=== PATIENT | male | born 1980 | race Caucasian/White ===

== ENCOUNTER 2024-09-07 03:35 | Emergency (ER) | payer OTHER, SELFPAY ==
[2024-09-07 03:42] VITALS: BP 125/88
[2024-09-07 04:00] VITALS: BP 124/75
[2024-09-07] MEDS: LOW STRENGTH ASPIRIN 324 MG PO (04:04)
[2024-09-07 04:08] VITALS: BMI 22.6
--- NOTE | 2024-09-07 04:18 | ED.GENMED ---
History of Present Illness
General
Chief Complaint: Chest Pain
Source: patient
Exam Limitations: none
Time Seen by Provider: 09/07/24 03:51
Nursing documentation reviewed up to this point in time: agreed with
History of Present Illness
History of Present Illness:
This is a 43-year-old gentleman who has history of ADHD, anxiety, low back pain who complains of left-sided chest pain that woke him from sleep approximately 1 hour prior to arrival associated with nausea without vomiting. He admits to brief
feeling of somewhat hot and then mildly cold but denies diaphoresis, brief cough upon arrival to the ED but prior to this has not had a cough, denies shortness of breath, denies palpitations, denies dizziness or lightheadedness.
Denies history of similar episodes of chest pain although review of records reveals various previous ED visits for chest pain complaints with unremarkable ED evaluations.
He has history of heart murmur initially discovered at age 9 but no history of CAD.
Family history of CAD in his dad who in his 50s of an KS.
Patient's only daily medication is Adderall. He did take a dose of Advil yesterday morning prior to golfing but denies daily nor frequent NSAID use.
He has not taken anything for his chest discomfort tonight.
No definitive aggravating or relieving factors. Pain is not worse with movement, not worse with deep breath. Left sided chest pain occasionally radiates to his left shoulder. He denies weakness or numbness and arm pain, denies back pain or neck
pain.
Past History
Past History
ED Past Medical History: Psychiatric (ADHD, Anxiety) and Other (Panic disorder)
ED Past Surgical History: Orthopedic
Social History
Tobacco: Smoker
Alcohol: Occasional
Personal:
Living: with family
Employment: Employed
Family History
Family History: CAD (Father of an KS in his 50s)
Phy Exam
Physical Exam
Physical Exam:
GENERAL: 43-year-old gentleman appears his stated age, awake and alert, pleasant, appears in no acute distress.
EYE: anicteric
NECK: Supple, nontender, no meningismus, no significant adenopathy.
ENT: oral mucosa is moist. No rhinorrhea.
CARDIAC: Regular rate and rhythm. 2/6 holosystolic murmur left sternal border.
LUNGS: Clear breath sounds bilaterally, no acute respiratory distress, no wheezes/rales/rhonchi. No palpable chest wall tenderness.
ABDOMEN: Soft, nondistended, mild tenderness left upper quadrant with deep palpation only, no r/g, no cvat. normoactive BS.
NEUROLOGICAL: Alert and oriented x3, no focal neuro deficits. Gait is steady.
SKIN: Warm and dry, normal color, skin intact. No rash.
MUSCULOSKELETAL: No C/C/E. peripheral pulses are full and equal b/l. No palpable tenderness.
PSYCH: Normal and appropriate interaction.
Scores
Heart Score for Chest Pain Patients
STEMI patient?: No
History: Slightly or Non-Suspicious
ECG: Normal
Age: </= 45 years
Risk Factors: 1 or 2 Risk Factors
Troponin: </= Normal Limit
Heart Score for Chest Pain Patients: 1
Heart Score Risk: 2.5% MACE over next 6 weeks
Course
Orders/Labs/Results
Orders:
Orders
09/07/24 03:36
Electrocardiogram (*1) Urgent
Reason for Study: Chest Pain
09/07/24 03:37
EKG- Treatment ONCE
09/07/24 04:00
Aspirin Chewable [Low Strength Aspirin] 324 mg PO NOW STA
09/07/24 04:09
Complete Blood Count/With Diff Urgent
Comprehensive Metabolic Panel Urgent
Troponin I Urgent
09/07/24 05:03
Pantoprazole [Protonix IV] 40 mg IV NOW STA
CR Chest - 2 Views Urgent
Comment:
Reason For Exam: ACUTE L CP
09/07/24 05:32
Troponin I Urgent
Abnormal Lab Results
09/07/24
04:09
Absolute Monos (auto) 0.9 H 10^3/uL
(0.1-0.6)
Monocytes % 9.8 H %
(1.7-9.3)
09/07/24 04:09
09/07/24 04:09
Vital Signs
Initial and Last Documented VS:
Initial Vital Signs
Temp Pulse Resp BP Pulse Ox
98.0 F 91 16 125/88 99
09/07/24 03:42 09/07/24 03:42 09/07/24 03:42 09/07/24 03:42 09/07/24 03:42
Last Documented Vital Signs
Temp Pulse Resp BP Pulse Ox
98.0 F 87 15 106/71 96
09/07/24 03:42 09/07/24 05:00 09/07/24 05:00 09/07/24 05:00 09/07/24 05:00
MDM/Problems Addressed
Differential Diagnosis Includes:
Concern for ACS, GERD, pleurisy, musculoskeletal chest pain.
No history of thromboembolism nor risk factors for such.
EKG is reassuring, within normal limits.
Will give a full-strength dose of chewable aspirin.
Labs are pending.
MDM/Problems Addressed:
Acute chest pain
*Radiology
Radiology exam reviewed: preliminary read by ED provider (Chest x-ray is unremarkable, normal heart size, clear lung rivers. Similar and unchanged from previous 2009)
*Pulse Oximetry
Patient hypoxic: no
*EKG
Interpreted by ED Provider?: Yes
Interpretation: normal
Comparison EKG: no changes (Unchanged from previous December 2022)
Rate: normal
Rhythm: sinus
[place]: normal axis
Interval: normal interval
QRS Pattern: normal QRS
Ischemia: no ischemia
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
Rate: normal
Interpretation: normal
Rhythm: sinus
*Critical Care Note
Total Time (30-74mins, 75-104mins- exclusive of procedures): Not Applicable
Update Note
Update Note:
Patient sleeping upon reevaluation.
notes that her complained of return of mild left shoulder ache but is now asleep.
Labs thus far are unremarkable with negative troponin.
Will give an IV dose of Protonix for potential GERD and plan to recheck troponin at 5:30 AM and will check chest x-ray as well.
If these returned unremarkable we will plan for discharge to home.
Due to family history of CAD, father passing away of an KS in his mid 50s, will plan to refer to our chest pain hotline.
ED Attending Note
-
Portions of this chart may have been created with voice recognition software.� Occasional wrong word or��sound alike� substitutions may have occurred due to the inherent limitations of voice recognition software.
Discharge Plan
Departure
Discharge Problem:
Nonspecific chest pain
Instructions: Chest Pain CBC Follow Up
Prescriptions:
No Action
Adderall
1 tab PO DAILY
Patient Comments:
pt does not know mg - supposed to take half in afternoon also but only takes morning dose
Referrals:
Miguel Angel Lam MD [Family Provider] - Call in 1-3 days for appt
Interventions
Interventions:
*Risk Screen - Suicide Last Done: 09/07/24 04:08
*General Assessment Last Done: 09/07/24 03:42
*Neglect/Abuse Screening Last Done: 09/07/24 04:08
ED- Fall Risk Assessment Last Done: 09/07/24 04:21
*ED COVID-19 Vaccine History Last Done: 09/07/24 03:42
ED- Cardiac Assessment Last Done: 09/07/24 04:21
Discharge Date and Time
Print Language: BELARUSIAN
--- NOTE | 2024-09-07 04:22 | EDRN ---
Pt woke around [id number] with L side chest pain. Pt has hx of anxiety and says it feels similar however pt noted it went down his L arm. Pt was lightheaded when he stood up. Chills and nausea. No sob, abd pain, vomiting, fever, weakness. No
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
[2024-09-07 04:23] LABS: % Basophils 0.6 % (0-2); % Eosinophils 2.2 % (0-6); % Immature Granulocytes 0.3 % (0-0.5); % Lymphocytes 30.8 % (20.5-51.1); % Monocytes 9.8 % (1.7-9.3); % Neutrophils 56.3 % (42.2-75.2); Absolute Basophils 0.1 10^3/uL (0-0.2); Absolute Eosinophils 0.2 10^3/uL (0-0.7); Absolute Lymphocytes 2.9 10^3/uL (1.2-3.4); Absolute Monocytes 0.9 10^3/uL (0.1-0.6); Absolute Neutrophils 5.3 10^3/uL (1.4-6.5); Hematocrit 42.8 % (39.0-52.0); Hemoglobin 15.1 g/dL (13.0-18.0); Mean Corp Hgb Conc. 35.3 g/dL (33.0-37.0); Mean Corpuscular Hgb 29.2 pg (27.0-31.0); Mean Corpuscular Volume 82.8 fL (80.0-94.0); Mean Platelet Volume 8.1 fL (7.4-10.4); Nucleated Red Blood Cells % 0 % (-); Platelet Count 310 10^3/uL (130-400); Red Blood Cell Count 5.17 10^6/uL (4.70-6.10); Red Cell Dist. Width 13.2 % (11.5-14.5); White Blood Cell Count 9.5 10^3/uL (4.8-10.8)
[2024-09-07 04:57] LABS: Troponin I < 0.012 ng/ml
[2024-09-07 05:00] VITALS: BP 106/71
[2024-09-07 05:02] LABS: ALT (SGPT) 20 U/L (0-50); AST (SGOT) 27 U/L (17-59); Alkaline Phosphatase 51 U/L (38-126); Blood Urea Nitrogen 13 mg/dl (9-20); Calcium 9.4 mg/dl (8.4-10.2); Carbon Dioxide 26 mmol/L (22-30); Chloride 105 mmol/L (98-107); Estimated Creatinine Clearance 110 ml/min; Glucose 99 mg/dl (70-99); Potassium 4.5 mmol/L (3.5-5.1); Sodium 141 mmol/L (135-145); Total Bilirubin 0.2 mg/dl (0.2-1.3); Total Protein 6.4 g/dl (6.3-8.2); eGFR > 60.00
[2024-09-07] MEDS: PROTONIX IV 40 MG IV (05:10)
[2024-09-07 06:00] VITALS: BP 110/68
[2024-09-07 06:10] LABS: Troponin I < 0.012 ng/ml
== END 2024-09-07 06:26 | disposition home or self-care (01) ==
LOC: EMR 03:35
PROVIDERS: EMERGENCY PHYSICIAN Emergency Medicine; FAMILY PHYSICIAN Family Medicine
DX: R07.89 Other chest pain (principal); F90.9 Attention-deficit hyperactivity disorder, unspecified type; F41.9 Anxiety disorder, unspecified; M54.50 Low back pain, unspecified; F17.200 Nicotine dependence, unspecified, uncomplicated
CPT/HCPCS: 99283; 71046; 80053; 84484; 85025; 93005

== ENCOUNTER → 2024-09-18 13:06 | Outpatient (REF) | payer OTHER, SELFPAY | LOC: RCS 13:06 | PROVIDERS: ATTENDING PHYSICIAN Internal Medicine Cardiovascular Disease; FAMILY PHYSICIAN Family Medicine | DX: R07.2 Precordial pain (principal) | CPT/HCPCS: 93017 ==

== ENCOUNTER → 2024-09-23 15:36 | Outpatient (REF) | payer OTHER, SELFPAY | LOC: RCS 15:36 | PROVIDERS: ATTENDING PHYSICIAN Internal Medicine Cardiovascular Disease; FAMILY PHYSICIAN Family Medicine | DX: R07.2 Precordial pain (principal); R01.1 Cardiac murmur, unspecified | CPT/HCPCS: 93306 ==

== ENCOUNTER 2025-08-03 08:36 | Emergency (ER) | payer BC, SELFPAY ==
[2025-08-03 08:50] VITALS: BP 138/84
--- NOTE | 2025-08-03 09:24 | ED.GENMED ---
History of Present Illness
General
Chief Complaint: Male Genito-Urinary Symptoms
Source: patient and records
Exam Limitations: none
Time Seen by Provider: 08/03/25 09:12
Nursing documentation reviewed up to this point in time: agreed with
History of Present Illness
History of Present Illness:
44-year-old male with a past medical history as noted presents to the ER for ration of testicular pain. Patient reports onset of symptoms 3 days ago and have been constant since that time. He reports aching pain in the left testicle that over the
past few days has began to radiate up towards the lower abdomen and left flank/low back. It does seem to be worse with certain positions. No clear relieving factors noted. He does have some associated nausea but no vomiting. He says he has had
some mild constipation off and on recently. He denies any dysuria or hematuria, change in urinary frequency although he has noted some dark urine recently. Has not had a fever. Although he has had testicular pain he has not noticed a significant
amount of scrotal swelling. He denies any trauma or injury. He denies having had similar symptoms in the past. He did have prior hernia repair on the right side but says that this was done in infancy.
Past History
Past History
ED Past Medical History: Psychiatric (ADHD, Anxiety) and Other (Panic disorder)
ED Past Surgical History: Orthopedic
Social History
Tobacco: Smoker
Alcohol: Occasional
Personal:
Living: with family
Employment: Employed
Family History
Family History: CAD (Father of an DC in his 50s)
Review of Systems
Review of Systems
All Other Systems: ROS reviewed and negative except as documented in HPI and ROS
Constitutional: Denies fever
Respiratory: Denies trouble breathing
Cardiac: Denies chest pain
ABD/GI: Reports abdominal pain, nausea and constipated; Denies vomiting
: Reports flank pain and dark urine; Denies dysuria, frequency or bleeding
Musculoskeletal: Reports back pain; Denies neck pain
Neurological: Denies dizzy or headache
Phy Exam
Physical Exam
Physical Exam:
General: Awake, alert, oriented x3; no acute distress
Head: Normocephalic, atraumatic
Eyes: Conjunctiva normal
Throat: Airway intact, handling secretions
Neck: Trachea midline, moving freely without pain
Lungs: Breathing comfortably without distress
Heart: Regular rate
Abd: Soft, non distended, nontender with no palpable masses
: Normal testicular lie, no notable scrotal swelling, mild tenderness of the left testicle, no appreciable testicular masses, no inguinal hernia appreciated
Back: No signs of trauma to the back or flank, no midline thoracic or lumbar tenderness, no tenderness in the paraspinal musculature of the lumbar region, no CVA tenderness
Neuro: Grossly intact
Skin: No rash noted
Extremities: No edema in extremities, warm and well-perfused
Scores
Heart Failure Risk
Heart Failure Risk Score: Not Applicable
Heart Score for Chest Pain Patients
STEMI patient?: Not applicable
Withdrawal Assessment of Alcohol
Withdrawal Assessment Completed?: Not applicable
Course
Orders/Labs/Results
Orders:
Orders
08/03/25 09:13
CT Abd/pel Without Iv Or Oral Urgent
Comment:
Reason For Exam: left groin and flank pain
08/03/25 09:22
Scrotum US [US Scrotum] Urgent
Comment:
Reason For Exam: left testicular pain
08/03/25 10:22
Complete Blood Count/With Diff Urgent
Comprehensive Metabolic Panel Urgent
Urinalysis Reflex To Culture Urgent
Date Specimen was Collected: 08/03/25
Time Specimen was Collected: 09:44
08/03/25 10:59
LevoFLOXacin [Levaquin] 500 mg PO NOW STA
Abnormal Lab Results
08/03/25
10:22
Absolute Monos (auto) 0.7 H 10^3/uL
(0.1-0.6)
Chloride 109 H mmol/L
(98-107)
BUN 23 H mg/dl
(9-20)
AST 16 L U/L
(17-59)
08/03/25 10:22
08/03/25 10:22
Vital Signs
Initial and Last Documented VS:
Initial Vital Signs
Temp Pulse Resp BP Pulse Ox
36.8 C 87 20 138/84 98
08/03/25 08:50 08/03/25 08:50 08/03/25 08:50 08/03/25 08:50 08/03/25 08:50
Last Documented Vital Signs
Temp Pulse Resp BP Pulse Ox
36.8 C 67 18 112/78 97
08/03/25 08:50 08/03/25 10:30 08/03/25 10:30 08/03/25 10:30 08/03/25 10:45
MDM/Problems Addressed
Differential Diagnosis Includes:
Nephrolithiasis, epididymitis/orchitis, inguinal hernia, sciatica/lumbosacral radiculopathy, constipation, diverticulitis; very low clinical suspicion for testicular torsion
MDM/Problems Addressed:
44-year-old male presents to the ER for evaluation of left scrotal pain rating to the abdomen and flank over the past few days. Vitals and exam as above. Plan to check labs including a CBC and a CMP, urinalysis. Will check CT abdomen pelvis,
scrotal ultrasound. Monitor closely reassess after the above.
Labs reviewed: CBC unremarkable, CMP no clinically significant abnormalities. Urinalysis bland. Scrotal ultrasound shows no evidence of torsion or any other acute abnormalities. Nothing by history to suggest that this is intermittent torsion. CT
shows nephroliths in the left central kidney but no ureteral calculus. No other acute abnormalities noted�there was a question of a calcification of a Meckel's diverticulum in the right upper quadrant but patient has no tenderness or pain in this
area. He has no palpable hernia on exam and clinically does have tenderness near the left testicle/epididymis at this point I think the likeliest diagnosis is that this is a mild case of epididymitis versus sciatica/lumbosacral radiculopathy. I
think it is reasonable to cover him with antibiotics. Stable for discharge to follow-up with primary care physician. Patient comfortable with this plan. Spoke about follow-up plan and return precautions and all questions were answered.
*Radiology
Radiology exam reviewed: radiology read reviewed
*Pulse Oximetry
SaO2: 98
Oxygen Mode of Delivery: Room air
Patient hypoxic: no (98%)
*Critical Care Note
Total Time (30-74mins, 75-104mins- exclusive of procedures): Not Applicable
Data Reviewed
Source: patient and records
ED Attending Note
-
Portions of this chart may have been created with voice recognition software.� Occasional wrong word or��sound alike� substitutions may have occurred due to the inherent limitations of voice recognition software.
Discharge Plan
Departure
Patient Disposition: Home (Routine Discharge)
Date of Disposition: 08/03/25
Time of Disposition: 10:59
Patient with high blood pressure during this ER visit?: No
Discharge Problem:
Left testicular pain
Instructions: Epididymitis and orchitis, Sciatica - ED (DC)
Prescriptions:
New
levofloxacin 500 mg tablet
500 mg PO DAILY Qty: 10 0RF
No Action
Adderall
1 tab PO DAILY
Patient Comments:
pt does not know mg - supposed to take half in afternoon also but only takes morning dose
Referrals:
Miguel Angel Lam MD [Family Provider, Family Practice] - Follow up in 5-7 days
Activity Restrictions/Additional Instructions:
Thank you for visiting the Emergency Department at [facility].
1. Please schedule a follow up appointment as directed. Call first thing tomorrow morning to make an appointment.
2. If indicated, please take your medications as instructed and indicated on discharge paperwork.
3. If any of your symptoms do not improve, or persist, or become more severe within 6-12 hours, please return to the emergency department for further care.
4. Please return to the emergency department if you develop a headache, neck pain/stiffness, fever greater than 100.4F, chest pain, shortness of breath, persistent nausea, vomiting, slurred speech, difficulty walking, numbness/tingling, weakness,
signs of infection or any other symptoms that are worrisome to you.
Please call [phone] if you have any questions.
Interventions
Interventions:
*Risk Screen - Suicide Last Done: 08/03/25 08:50
*General Assessment Last Done: 08/03/25 08:50
*Neglect/Abuse Screening Last Done: 08/03/25 08:50
*ED- Fall Risk Assessment Last Done: 08/03/25 10:28
*ED COVID-19 Vaccine History Last Done: 08/03/25 10:28
ED-Male Genitourinary Assessment Last Done: 08/03/25 10:55
Discharge Date and Time
Print Language: [id number]
[2025-08-03 10:27] VITALS: BP 112/78
[2025-08-03 10:28] VITALS: BMI 24.3
[2025-08-03 10:30] VITALS: BP 112/78
[2025-08-03 10:38] LABS: Hematocrit 42.4 % (39.0-52.0); Hemoglobin 14.4 g/dL (13.0-18.0); Mean Corp Hgb Conc. 34.0 g/dL (33.0-37.0); Mean Corpuscular Volume 85.7 fL (80.0-94.0); Nucleated Red Blood Cells % 0 % (-); Platelet Count 333 10^3/uL (130-400); Red Cell Dist. Width 12.7 % (11.5-14.5)
[2025-08-03 10:42] LABS: Urine Character Clear (Clear)
[2025-08-03 10:51] LABS: ALT (SGPT) 15 U/L (0-50); AST (SGOT) 16 U/L (17-59); Albumin 3.8 g/dl (3.5-5.0); Alkaline Phosphatase 41 U/L (38-126); Blood Urea Nitrogen 23 mg/dl (9-20); Calcium 9.6 mg/dl (8.4-10.2); Carbon Dioxide 28 mmol/L (22-30); Chloride 109 mmol/L (98-107); Estimated Creatinine Clearance 112 ml/min; Glucose 94 mg/dl (70-99); Potassium 4.2 mmol/L (3.5-5.1); Sodium 140 mmol/L (135-145); Total Protein 6.3 g/dl (6.3-8.2); eGFR > 60.00
[2025-08-03 11:00] VITALS: BP 113/77
[2025-08-03] MEDS: LEVAQUIN 500 MG PO (11:53)
== END 2025-08-03 11:50 | disposition home or self-care (01) ==
LOC: EMR 08:36
PROVIDERS: EMERGENCY PHYSICIAN Emergency Medicine; FAMILY PHYSICIAN Family Medicine
DX: N50.812 Left testicular pain (principal); F90.9 Attention-deficit hyperactivity disorder, unspecified type; F41.9 Anxiety disorder, unspecified; F41.0 Panic disorder [episodic paroxysmal anxiety]; F17.200 Nicotine dependence, unspecified, uncomplicated; Z82.49 Family history of ischemic heart disease and other diseases of the circulatory system
CPT/HCPCS: 99284; 74176; 76870; 80053; 81003; 85025; 93976